=== PATIENT | male | born 1930 | race Caucasian/White ===

== ENCOUNTER 2017-03-27 17:48 | Emergency (ER) | payer MEDICARE, OTHER | END 2017-03-28 00:05 | disposition home or self-care (01) | LOC: FER 17:48 | DX: M54.41 Lumbago with sciatica, right side (principal); I11.9 Hypertensive heart disease without heart failure; E11.9 Type 2 diabetes mellitus without complications; Z87.891 Personal history of nicotine dependence; Z96.641 Presence of right artificial hip joint; Z98.890 Other specified postprocedural states | CPT/HCPCS: 72170; 73502; 73564; J1100; J1885 ==